=== PATIENT | female | born 2000 | race African-American/Black ===

== ENCOUNTER 2023-04-26 09:08 | Emergency (ER) | payer OTHER, SELFPAY ==
[2023-04-26] MEDS ORDERED: NA CHLORIDE 0.9% 1,000 ML ONE (09:30)
[2023-04-26] MEDS ORDERED: FAMOTIDINE 20 MG/2 ML VIAL IV ONE (09:30)
[2023-04-26 09:53] LABS: Lymphocytes % 15.2 % (15.3-44.8); MCV 86.6 fL (80-100); MPV 7.6 fL (7.6-11.3); RBC Red Blood Cell Count 4.62 M/uL (3.86-4.86)
[2023-04-26 10:14] LABS: Albumin 3.9 g/dL (3.4-5.0); Bilirubin Total 0.3 mg/dL (0.2-1.0); Potassium 3.9 mEq/L (3.5-5.1); Protein, Total 8.1 g/dL (6.4-8.2); Thyroid Stimulating Hormone 0.934 uIU/mL (0.358-3.740)
[2023-04-26 10:49] LABS: Specific Gravity > 1.030 (1.005-1.030)
[2023-04-26 11:04] LABS: Specific Gravity > 1.030 (1.005-1.030); Urine Bacteria >50 /HPF (<20); Urine Bilirubin NEGATIVE (Negative); Urine Blood Negative (Negative); Urine Clarity Turbid (Clear); Urine Color Yellow (Yellow); Urine Glucose NEGATIVE (Negative); Urine Mucus 4+ /HPF (None Seen); Urine Protein 1+ (Negative); Urine RBC <5 /HPF (None Seen); Urine Urobilinogen Normal (Normal); Urine pH 6.5 (5.0-7.0)
--- NOTE | 2023-04-26 11:17 | ER ---
Nurse's Notes [facility] Name: Dmitri Turk Age: 22 yrs Sex: Female : 2000 Arrival Date: 04/26/2023 Time: 09:08 Bed 17 Private MD: Diagnosis: Syncope Near;UTI/ Urinary tract infection, site not specified Presentation: 04/26 09:09 Chief complaint: EMS states: pt was on 6th floor tower at [place] and saw green then black, eh3 caught self then assisted to floor by coworkers, did not hit head. EMS reports sinus tach HR 100-109 en route and BGL 120. Coronavirus screen: Vaccine status: Patient reports receiving the 2nd dose of the covid vaccine. Ebola Screen: No symptoms or risks identified at this time. Initial Sepsis Screen: Does the patient meet any 2 criteria? No. Patient's initial sepsis screen is negative. Does the patient have a suspected source of infection? No. Patient's initial sepsis screen is negative. Risk Assessment: Do you want to hurt yourself or someone else? Patient reports no desire to harm self or others. Onset of symptoms was April 26, 2023. 09:09 Method Of Arrival: EMS: [facility] 3 09:09 Acuity: ELIZABETH 3 eh3 Triage Assessment: 09:13 General: Appears in no apparent distress. comfortable, Behavior is calm, cooperative, eh3 appropriate for age. Pain: Denies pain. Neuro: Level of Consciousness is awake, alert, obeys commands, Oriented to person, place, time, situation, Speech is normal, Pupils are PERRLA, Reports dizziness, a syncopal episode. Cardiovascular: Capillary refill < 3 seconds Patient's skin is warm and dry. Rhythm is sinus rhythm. Respiratory: Airway is patent Respiratory effort is even, unlabored, Respiratory pattern is regular, symmetrical. GI: Abdomen is flat, non-distended. Derm: Skin is healthy with good turgor, Skin is pink, warm \T\ dry. Musculoskeletal: Circulation, motion, and sensation intact. Range of motion: intact in all extremities. 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 - Social history:: Smoking status: unknown. Screenin:15 [facility] ED Fall Risk Assessment (Adult) Score/Fall Risk Level 0 - 2 = Low Risk. Abuse eh3 screen: Denies threats or abuse. Denies injuries from another. Nutritional screening: No deficits noted. Tuberculosis screening: No symptoms or risk factors identified. Assessment: 09:14 Reassessment: No changes from previously documented assessment. See triage assessment. eh3 Neuro: Level of Consciousness is awake, alert, obeys commands, Oriented to person, place, time, situation. Cardiovascular: Capillary refill < 3 seconds Patient's skin is warm and dry. Rhythm is sinus rhythm. 10:00 Reassessment: Patient appears in no apparent distress at this time. Patient and/or eh3 family updated on plan of care and expected duration. Pain level reassessed. Patient is alert, oriented x 3, equal unlabored respirations, skin warm/dry/pink. 11:00 Reassessment: Patient appears in no apparent distress at this time. Patient and/or eh3 family updated on plan of care and expected duration. Pain level reassessed. Patient is alert, oriented x 3, equal unlabored respirations, skin warm/dry/pink. Vital Signs: 09:09 BP 117 / 69; Pulse 98; Resp 18; Temp 98.2(O); Pulse Ox 100% ; Weight 54.43 kg; Height 5 eh3 ft. 5 in. ; Pain 0/10; 09:31 BP 109 / 61 Supine; Pulse 92; eh3 09:33 BP 112 / 72 Sitting; Pulse 90; eh3 09:35 BP 114 / 72 Standing; Pulse 94; eh3 10:00 BP 112 / 65; Pulse 87; Resp 15; Pulse Ox 100% ; eh3 11:00 BP 117 / 67; Pulse 96; Resp 20; Pulse Ox 100% on R/A; eh3 09:09 Body Mass Index 19.97 (54.43 kg, 165.1 cm) eh3 09:09 Pain Scale: Adult 3 ED Course: 09:09 Patient arrived in ED. eh3 09:12 Triage completed. eh3 09:13 Dawn Watson RN is Primary Nurse. eh3 09:13 Arm band placed on. eh3 09:15 Patient has correct armband on for positive identification. Bed in low position. Call 3 light in reach. Side rails up X2. Provided Education on: N/A. Client placed on continuous cardiac and pulse oximetry monitoring. NIBP monitoring applied. Door closed. Noise minimized. 09:16 Cecilia Chacko FNP-C [facility]. snw 09:17 Paresh Parson MD is Attending Physician. snw 09:25 Initial lab(s) drawn, by ED staff. Inserted saline lock: 20 gauge in right antecubital eh3 area, using aseptic technique. Blood collected. 11:28 No provider procedures requiring assistance completed. IV discontinued, intact, eh3 bleeding controlled, No redness/swelling at site. Pressure dressing applied. Administered Medications: 09:36 Drug: NS 0.9% IV 1000 ml Route: IV; Rate: 1 bolus; Site: right antecubital; eh3 10:30 Follow up: IV Status: Completed infusion; IV Intake: 1000ml eh3 09:36 Drug: Famotidine IVP 20 mg Route: IVP; Site: right antecubital; eh3 10:19 Follow up: Response: No adverse reaction eh3 11:20 Drug: Rocephin IV 1 grams Route: IV; Rate: calculated rate; Site: right antecubital; eh3 11:40 Follow up: Response: No adverse reaction; IV Status: Completed infusion; IV Intake: [id number] Medication: 11:28 VIS not applicable for this client. eh3 Intake: 10:30 IV: 1000ml; Total: 1000ml. eh3 11:40 IV: 50ml; Total: 1050ml. eh3 Outcome: 11:17 Discharge ordered by . snw 11:28 Discharged to home ambulatory. eh3 11:28 Condition: stable 11:28 Discharge instructions given to patient, Instructed on discharge instructions, follow up and referral plans. medication usage, Demonstrated understanding of instructions, follow-up care, medications, Prescriptions given X 2. 11:43 Patient left the ED. eh3 Signatures: Cecilia Chacko FNP-C FNP-CsnDawn Coffey, RN RN eh3
--- NOTE | 2023-04-26 11:17 | EDPHYS ---
Physician Documentation [facility] Name: Dmitri Turk Age: 22 yrs Sex: Female : 2000 Arrival Date: 04/26/2023 Time: 09:08 Bed 17 Private MD: ED Physician Paresh Parson HPI: 04/26 09:20 This 22 yrs old Female presents to ER via EMS with complaints of Syncope. snw 09:20 The patient has experienced syncope, collapsed. Onset: The symptoms/episode snw began/occurred suddenly, just prior to arrival. Duration: This was a single episode, that lasted an unknown period of time. Context: the episode(s) was witnessed, by co-worker(s), occurred at work, occurred while the patient was standing, Just prior to the episode the patient experienced green light and then black in vision. Associated injury: The patient did not suffer any apparent associated injury. Associated signs and symptoms: The patient has no apparent associated signs or symptoms. Current symptoms: Currently, the patient is not experiencing any symptoms. The patient has not experienced similar symptoms in the past. It is unknown whether or not the patient has recently seen a physician. pt was up in a structure, not exceedingly hot, began having visual changes, and then tunnel vision, and then passed out, co-worker assisted her to the ground. 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 - Social history:: Smoking status: unknown. ROS: 09:20 Constitutional: Negative for fever, chills, and weight loss, Eyes: Negative for injury, snw pain, redness, and discharge, ENT: Negative for injury, pain, and discharge, Neck: Negative for injury, pain, and swelling, Cardiovascular: Negative for chest pain, palpitations, and edema, Respiratory: Negative for shortness of breath, cough, wheezing, and pleuritic chest pain, Abdomen/GI: Negative for abdominal pain, nausea, vomiting, diarrhea, and constipation, Back: Negative for injury and pain, : Negative for injury, bleeding, discharge, and swelling, MS/Extremity: Negative for injury and deformity, Skin: Negative for injury, rash, and discoloration, Psych: Negative for depression, anxiety, suicide ideation, homicidal ideation, and hallucinations. 09:20 Neuro: Positive for syncope. Exam: :20 Constitutional: This is a well developed, well nourished patient who is awake, alert, snw and in no acute distress. Head/Face: Normocephalic, atraumatic. Eyes: Pupils equal round and reactive to light, extra-ocular motions intact. Lids and lashes normal. Conjunctiva and sclera are non-icteric and not injected. Cornea within normal limits. Periorbital areas with no swelling, redness, or edema. ENT: Nares patent. No nasal discharge, no septal abnormalities noted. Tympanic membranes are normal and external auditory canals are clear. Oropharynx with no redness, swelling, or masses, exudates, or evidence of obstruction, uvula midline. Mucous membranes moist. Neck: Trachea midline, no thyromegaly or masses palpated, and no cervical lymphadenopathy. Supple, full range of motion without nuchal rigidity, or vertebral point tenderness. No Meningismus. Chest/axilla: Normal chest wall appearance and motion. Nontender with no deformity. No lesions are appreciated. Cardiovascular: Regular rate and rhythm with a normal S1 and S2. No gallops, murmurs, or rubs. Normal PMI, no JVD. No pulse deficits. Respiratory: Lungs have equal breath sounds bilaterally, clear to auscultation and percussion. No rales, rhonchi or wheezes noted. No increased work of breathing, no retractions or nasal flaring. Abdomen/GI: Soft, non-tender, with normal bowel sounds. No distension or tympany. No guarding or rebound. No evidence of tenderness throughout. Back: No spinal tenderness. No costovertebral tenderness. Full range of motion. Skin: Warm, dry with normal turgor. Normal color with no rashes, no lesions, and no evidence of cellulitis. MS/ Extremity: Pulses equal, no cyanosis. Neurovascular intact. Full, normal range of motion. Neuro: Awake and alert, GCS 15, oriented to person, place, time, and situation. Cranial nerves II-XII grossly intact. Motor strength 5/5 in all extremities. Sensory grossly intact. Cerebellar exam normal. Normal gait. Psych: Awake, alert, with orientation to person, place and time. Behavior, mood, and affect are within normal limits. Vital Signs: 09:09 BP 117 / 69; Pulse 98; Resp 18; Temp 98.2(O); Pulse Ox 100% ; Weight 54.43 kg; Height 5 eh3 ft. 5 in. ; Pain 0/10; 09:31 BP 109 / 61 Supine; Pulse 92; eh3 09:33 BP 112 / 72 Sitting; Pulse 90; eh3 09:35 BP 114 / 72 Standing; Pulse 94; eh3 10:00 BP 112 / 65; Pulse 87; Resp 15; Pulse Ox 100% ; eh3 11:00 BP 117 / 67; Pulse 96; Resp 20; Pulse Ox 100% on R/A; eh3 09:09 Body Mass Index 19.97 (54.43 kg, 165.1 cm) eh3 09:09 Pain Scale: Adult eh3 MDM: 09:17 Patient medically screened. snw 11:18 Differential Diagnosis: cardiac arrhythmia, , seizure, vasovagal episode. Data snw reviewed: vital signs, nurses notes. I considered the following discharge prescriptions or medication management in the emergency department Medications were administered in the Emergency Department. See MAR. Counseling: I had a detailed discussion with the patient and/or guardian regarding: the historical points, exam findings, and any diagnostic results supporting the discharge/admit diagnosis, lab results, radiology results, the need for outpatient follow up, for definitive care, to return to the emergency department if symptoms worsen or persist or if there are any questions or concerns that arise at home. Response to treatment: the patient's symptoms have markedly improved after treatment. Special discussion: Based on the history and exam findings, there is no indication for further emergent testing or inpatient evaluation. I discussed with the patient/guardian the need to see the primary care provider for further evaluation of the symptoms. 04/26 09:17 Order name: CBC with Diff; Complete Time: 09:59 snw 04/26 09:17 Order name: CMP; Complete Time: 10:20 snw 04/26 09:17 Order name: Lipase; Complete Time: 10:20 snw 04/26 09:17 Order name: Test, Urine; Complete Time: 10:53 snw 04/26 09:17 Order name: Urinalysis w/ reflexes; Complete Time: 11:09 snw 04/26 09:17 Order name: TSH; Complete Time: 10:20 snw 04/26 10:20 Order name: EKG; Complete Time: 10:21 snw 04/26 09:17 Order name: IV Saline Lock; Complete Time: 09:40 snw 04/26 09:17 Order name: Labs collected and sent; Complete Time: 09:39 snw 04/26 09:17 Order name: Orthostatics; Complete Time: 09:43 snw 04/26 10:20 Order name: EKG - Nurse/Tech; Complete Time: 10:31 snw EC:39 Rate is 88 beats/min. Rhythm is irregular. QRS [place] is Normal. CT interval is normal. snw QT interval is normal. No Q waves. Clinical impression: Sinus arrythmia. Administered Medications: 09:36 Drug: NS 0.9% IV 1000 ml Route: IV; Rate: 1 bolus; Site: right antecubital; eh3 10:30 Follow up: IV Status: Completed infusion; IV Intake: 1000ml 3 09:36 Drug: Famotidine IVP 20 mg Route: IVP; Site: right antecubital; eh3 10:19 Follow up: Response: No adverse reaction eh3 11:20 Drug: Rocephin IV 1 grams Route: IV; Rate: calculated rate; Site: right antecubital; eh3 11:40 Follow up: Response: No adverse reaction; IV Status: Completed infusion; IV Intake: [id number] Disposition Summary: 04/26/23 11:17 Discharge Ordered Location: Home snw Condition: Stable snw Diagnosis - Syncope Near snw - UTI/ Urinary tract infection, site not specified snw Followup: snw - With: Emergency Department - When: As needed - Reason: Worsening of condition Followup: snw - With: Private Physician - When: 2 - 3 days - Reason: Recheck today's complaints, Continuance of care, Re-evaluation by your physician Discharge Instructions: - Discharge Summary Sheet snw - Syncope snw - Urinary Tract Infection, Adult snw - Rehydration, Adult snw Forms: - Work release form snw - Medication Reconciliation Form snw - Thank You Letter snw - Antibiotic Education snw - Prescription Opioid Use snw - Patient Portal Instructions snw Prescriptions: - Augmentin 875-125 mg Oral Tablet - take 1 tablet by ORAL route every 12 hours for 10 days; 20 tablet; Refills: 0, snw Product Selection Permitted - promethazine 25 mg Oral Tablet - take 1 tablet by ORAL route every 6 hours As needed; 20 tablet; Refills: 0, snw Product Selection Permitted Signatures: Dispatcher [employer] Cecilia Giraldo FNP-C RESOURCE CENTER TEACHER-Csnw Dawn Watson RN RN eh3
[2023-04-26] MEDS ORDERED: CEFTRIAXONE 1000 MG/VIAL ONE (11:29)
[2023-04-26] MEDS ORDERED: NA CHLORIDE 0.9% 50 ML ONE (11:30)
[2023-04-26 11:47] VITALS: TEMP 98.2; O2SAT 100
[2023-04-26 11:55] VITALS: BP 117/67
--- NOTE | 2023-04-27 13:22 | EKG ---
Test Date: 2023-04-26 Test Time: 10:28:22 Operators School Manager: SADIE MEASUREMENT RESULTS: Intervals: Rate: 88 ND: 156 QRSD: 82 QT: 368 QTc: 445 [place]: P: 63 ND: 156 QRS: 68 T: 46 INTERPRETIVE STATEMENTS: Normal sinus rhythm with sinus arrhythmia Normal ECG No previous ECG available for comparison Electronically Signed On 04-27-23 13:20:05 CDT by Travon Brewer
== END 2023-04-26 11:43 | disposition home or self-care (01) ==
LOC: ER 09:08
DX: R55 Syncope and collapse (principal); N39.0 Urinary tract infection, site not specified
CPT/HCPCS: 85025; 81001; 36415; 81025; 84443; 83690; 80053; J7030; J0696; 93005; 96361; 96365; 96375; 99284